=== PATIENT | male | born 1990 | race American Indian/Alaskan Native ===

== ENCOUNTER 2017-06-17 18:27 | Emergency (ER) | payer SELFPAY ==
[2017-06-17] MEDS ORDERED: XYLOCAINE 2% INFILTRATI ONE (19:00)
[2017-06-17] MEDS ORDERED: ANCEF IM ONE (19:01)
[2017-06-17] MEDS ORDERED: BOOSTRIX IM ONE (19:01)
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
[2017-06-17] MEDS ORDERED: WATER FOR INJ (PF) 10 ML ONE (20:06)
[2017-06-17] MEDS ORDERED: TRIPLE ANTIBIOTIC TP ONE (22:04)
[2017-06-17 22:15] VITALS: BP 140/88
== END 2017-06-17 22:14 ==
LOC: ED 18:27
DX: S01.81XA Laceration without foreign body of other part of head, initial encounter (principal); S09.90XA Unspecified injury of head, initial encounter; W19.XXXA Unspecified fall, initial encounter; Y93.89 Activity, other specified; Y92.89 Other specified places as the place of occurrence of the external cause; Y99.8 Other external cause status
CPT/HCPCS: 12011; 70450; 70486; 72125; 72170; 73120; 90471; 90715; 96372; 99284; J0690; A6250

== ENCOUNTER 2017-06-19 11:08 | Emergency (ER) | payer SELFPAY | END 2017-06-19 12:16 | disposition left against medical advice (07) | LOC: ED 11:08 | DX: R51 Headache (principal); Z53.21 Procedure and treatment not carried out due to patient leaving prior to being seen by health care provider ==

== ENCOUNTER 2017-06-22 14:29 | Emergency (ER) | payer SELFPAY ==
[2017-06-22 14:40] VITALS: BP 139/81
--- NOTE | 2017-06-22 15:57 | Emergency Department Report ---
Suture/Staple Removal - [facility] Chief Complaint: Laceration/Recheck/Suture Stated Complaint: SUTURE REMOVAL Time Seen by Provider: 06/22/17 15:39 When Sutures or Arnulfo Placed: 5-7 Days Ago Wound Location: left eyebrow ED Review of Systems ROS: Stated complaint: SUTURE REMOVAL Other details as noted in HPI Constitutional: denies: chills, fever Eyes: denies: eye pain, eye discharge, vision change ENT: denies: ear pain, throat pain Respiratory: denies: cough, shortness of breath, wheezing Cardiovascular: denies: chest pain, palpitations Endocrine: no symptoms reported Gastrointestinal: denies: abdominal pain, nausea, diarrhea Genitourinary: denies: urgency, dysuria Musculoskeletal: denies: back pain, joint swelling, arthralgia Skin: denies: rash, lesions Neurological: denies: headache, weakness, paresthesias Psychiatric: denies: anxiety, depression Hematological/Lymphatic: denies: easy bleeding, easy bruising ED Past Medical Hx - Past Medical History Previous Medical History?: No - Surgical History Past Surgical History?: No - Social History Smoking Status: Current Every Day Smoker Substance Use Type: Marijuana Suture Removal Exam - Exam General: Vital signs noted. No distress. Alert and acting appropriately. Wound: No Pathologic Erythema, No Tenderness, No Drainage, No Pus, No Wound Dehiscence Other Systems: All other systems reviewed and are unremarkable. ED Course Vital Signs 06/22/17 14:38 Temperature 98.5 F Pulse Rate 58 L Respiratory 16 Rate Blood Pressure 139/81 O2 Sat by Pulse 98 Oximetry - Reevaluation(s) Reevaluation #1: 06/22/17 15:59 Patient is speaking in full sentences with no signs of distress noted. ED Recheck MDM - Medical Decision Making 26-year-old male that presents with suture removal. Total of 4 stitches has been removed. Patient tolerated well. Healing well with no signs of dehesince , swelling, pus or drainage. At time of discharge, the patient does not seem toxic or ill in appearance. No acute signs of distress noted. Patient agrees to discharge treatment plan of care. No further questions noted by the patient. Critical care attestation.: If time is entered above; I have spent that time in minutes in the direct care of this critically ill patient, excluding procedure time. ED Disposition Clinical Impression: Visit for suture removal Disposition: DC-01 TO HOME OR SELFCARE Is pt being admited?: No Does the pt Need Aspirin: No Condition: Stable Instructions: Suture Removal (ED) Additional Instructions: Follow-up with a primary care doctor in 3-5 days or if symptoms worsen and continue return to emergency room as soon as possible. Referrals: PRIMARY CAREMD [Primary Care Provider] - 3-5 Days MARIELA MCGARRY MD [Staff Physician] - 3-5 Days [facility] [Outside] - 3-5 Days Forms: Work/School Release Form(ED)
== END 2017-06-22 16:37 | disposition home or self-care (01) ==
LOC: ED 14:29
DX: Z48.02 Encounter for removal of sutures (principal)

== ENCOUNTER 2017-06-28 15:43 | Emergency (ER) | payer OTHER ==
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
[2017-06-28 21:53] VITALS: BP 135/81
== END 2017-06-28 21:52 | disposition home or self-care (01) ==
LOC: ED 15:43
DX: G44.89 Other headache syndrome (principal); R42 Dizziness and giddiness; Z87.828 Personal history of other (healed) physical injury and trauma
CPT/HCPCS: 99282